=== PATIENT | male | born 1970 | race Caucasian/White ===

== ENCOUNTER 2016-11-01 10:35 | Emergency (ER) | payer OTHER ==
[2016-11-01 10:43] VITALS: RESP 16
[2016-11-01] MEDS ORDERED: NS 1,000 ML IV ONE (11:01)
--- NOTE | 2016-11-01 11:06 | EDPHY ---
H & P Stated Complaint: LLQ pain with diarrhea turning to maroon bloody stool since 2: 30 am HPI/ROS: CHIEF COMPLAINT: Left lower quadrant abdominal pain, bloody stools HISTORY OF PRESENT ILLNESS: Patient complains of bloody stools that started around 8:00 p.m. last night. This was diarrhea with some darker and brighter red blood in the toilet. It is bright red blood when he wipes. He has had 5 more episodes of this. The subsequent episodes have minimal bowel production, and more blood present. He associates this with some cramping, left lower quadrant abdominal pain. This is constant. It does not radiate. Some nausea but no vomiting. No fever chills. No flank pain. No bleeding disorders, diverticulitis, Crohn's, ulcerative colitis. Does have a history of diverticulitis in the family. Did not take any blood thinners. He does not have any bleeding disorders. No bleeding from any other site No instrumentation of the rectum. No recent weight loss. No changes in the caliber of the stool. No other associated complaints or modifying factors. PREVIOUS ABDOMINAL SURGERIES/DIAGNOSES: None NPO: Last night REVIEW OF SYSTEMS: Ten systems reviewed and are negative unless otherwise noted in the HPI EXAMINATION: General Appearance: Alert, no distress Head: normocephalic, atraumatic Eyes: Pupils equal and round, no conjunctival pallor or injection ENT, Mouth: Mucous membranes moist. Uvula midline. Neck: Normal inspection, supple, non-tender Respiratory: Lungs are clear to auscultation. No wheezing, rhonchi or crackles. Cardiovascular: Regular rate and rhythm. No murmur. Pulses intact distally. Gastrointestinal: Abdomen is soft. Mild tenderness in left lower quadrant. No guarding. No rebound. No tympany. No rigidity. Non-acute abdomen. Rectal exam: patient declined/deferred Neurological: A&O, nonfocal, normal gait Skin: Warm and dry, no rash Extremities: Nontender, no pedal edema Psychiatric: Mood and affect normal DIFFERENTIAL DIAGNOSES: Diverticulosis, diverticulitis, Crohn's, ulcerative colitis, enteritis MDM: 11:12 a.m. Left lower quadrant abdominal pain with diarrhea and some hematochezia. Vital signs are stable. Abdominal exam is not acute but he is tender left lower quadrant. I have ordered CT scan of the abdomen pelvis in addition 1:40 p.m. I have re-evaluated patient twice in the past 2 hours. He remains hemodynamically stable in no acute distress. Laboratory studies reveal a mild leukocytosis. Hemoglobin is normal. Coagulation studies normal. The GI pathogen panel reveals Enteroaggregate E. Coli and positive hemoccult. CT scan reveals focal thickening of the rectum with recommendation of direct visualization. I have discussed this with the patient. He has declined a rectal examination. We will proceed with discharge home follow up with GI specialist. I will contact GI physician prior to discharge home for outpatient recommendations. 1:55 p.m. I discussed the case with Dr. Alicia. He says that the patient can follow up with [facility]. No further recommendations room at this time. Patient is comfortable with this plan. He is discharged home stable condition with prescription for Keflex ED Precautions: Worsening pain. Fever. Bloody stools. Bloody emesis. Constipation or diarrhea. SUPERVISION: This patient was independently evaluated without direct examination by the attending physician. Case was discussed with attending physician. Case discussed with Dr. Soni Source: Patient, Family Exam Limitations: No limitations - Personal History Current Tetanus/Diphtheria Vaccine: Unsure Current Tetanus Diphtheria and Acellular Pertussis (TDAP): Unsure - Medical/Surgical History Hx Asthma: No Hx Chronic Respiratory Disease: No Hx Diabetes: No Hx Cardiac Disease: No Hx Renal Disease: No Hx Cirrhosis: No Hx Alcoholism: No Hx HIV/AIDS: No Hx Splenectomy or Spleen Trauma: No Other PMH: SVT - Social History Smoking Status: Never smoked Constitutional: Initial Vital Signs Temperature (C) 98.4 F 11/01/16 10:38 Heart Rate 67 11/01/16 10:38 Respiratory Rate 16 11/01/16 10:38 Blood Pressure 141/103 H 11/01/16 10:38 O2 Sat (%) 98 11/01/16 10:38 O2 Delivery Mode Room Air Allergies/Adverse Reactions: No Known Allergies Allergy (Unverified 11/01/16 10:36) Home Medications: Medication Instructions Recorded Aspirin 11/01/16 Cephalexin [Keflex (*)] 500 mg PO TID #30 cap 11/01/16 DILTIAZEM ER 11/01/16 Medical Decision Making - Diagnostics Imaging Results: Imaging Impressions Abdomen CT 11/01/16 11:11 Impression: Localized rectal wall thickening. Recommend correlation with direct inspection. Rectal carcinoma is in the differential diagnosis. Doubt proctitis since the mural thickening is eccentric. A message was left with the scribe of Lele Arriaga at 1:13 PM General information for patients regarding this examination can be found at [email or web address]. If you have questions or comments about this report, please contact me at (hospital) or [phone] (cell). - Data Points Laboratory Results: Laboratory Results 11/01/16 11:05 11/01/16 11:05 11/01/16 11/01/16 11/01/16 11:05 11:05 11:05 WBC 13.82 10^3/uL H 10^3/uL (3.80-9.50) RBC 4.66 10^6/uL 10^6/uL (4.40-6.38) Hgb 14.9 g/dL g/dL (13.7-17.5) Hct 42.5 % % (40.0-51.0) MCV 91.2 fL fL (81.5-99.8) MCH 32.0 pg pg (27.9-34.1) MCHC 35.1 g/dL g/dL (32.4-36.7) RDW 12.3 % % (11.5-15.2) Plt Count 320 10^3/uL 10^3/uL (150-400) MPV 10.7 fL fL (8.7-11.7) Neut % (Auto) 68.3 % % (39.3-74.2) Lymph % (Auto) 20.7 % % (15.0-45.0) [place] % (Auto) 9.6 % % (4.5-13.0) Eos % (Auto) 0.4 % L % (0.6-7.6) Baso % (Auto) 0.7 % % (0.3-1.7) Nucleat RBC Rel Count 0.0 % % (0.0-0.2) Absolute Neuts (auto) 9.45 10^3/uL H 10^3/uL (1.70-6.50) Absolute Lymphs (auto) 2.86 10^3/uL 10^3/uL (1.00-3.00) Absolute Monos (auto) 1.33 10^3/uL H 10^3/uL (0.30-0.80) Absolute Eos (auto) 0.05 10^3/uL 10^3/uL (0.03-0.40) Absolute Basos (auto) 0.09 10^3/uL 10^3/uL (0.02-0.10) Absolute Nucleated RBC 0.00 10^3/uL 10^3/uL (0-0.01) Immature Gran % 0.3 % % (0.0-1.1) Immature Gran # 0.04 10^3/uL 10^3/uL (0.00-0.10) PT 13.2 SEC SEC (12.0-15.0) INR 1.01 (0.83-1.16) APTT 25.1 SEC SEC (23.0-38.0) Sodium 142 mEq/L mEq/L (134-144) Potassium 3.8 mEq/L mEq/L (3.5-5.2) Chloride 106 mEq/L mEq/L (97-110) Carbon Dioxide 23 mEq/l mEq/l (22-31) Anion Gap 13 mEq/L mEq/L (8-16) BUN 18 mg/dL mg/dL (7-23) Creatinine 0.9 mg/dL mg/dL (0.7-1.3) Estimated GFR > 60 Glucose 104 mg/dL H mg/dL (70-100) Calcium 10.2 mg/dL mg/dL (8.5-10.4) Total Bilirubin 0.7 mg/dL mg/dL (0.1-1.4) Conjugated Bilirubin 0.3 mg/dL mg/dL (0.0-0.5) Unconjugated Bilirubin 0.4 mg/dL mg/dL (0.0-1.1) AST 25 IU/L IU/L (17-59) ALT 26 IU/L IU/L (21-72) Alkaline Phosphatase 70 IU/L IU/L (38-126) Total Protein 8.2 g/dL g/dL (6.3-8.2) Albumin 4.7 g/dL g/dL (3.5-5.0) Lipase 145.0 IU/L IU/L (23-300) Stool Occult Bld Scrn 11/01/16 11:01 WBC RBC Hgb Hct MCV MCH MCHC RDW Plt Count MPV Neut % (Auto) Lymph % (Auto) [place] % (Auto) Eos % (Auto) Baso % (Auto) Nucleat RBC Rel Count Absolute Neuts (auto) Absolute Lymphs (auto) Absolute Monos (auto) Absolute Eos (auto) Absolute Basos (auto) Absolute Nucleated RBC Immature Gran % Immature Gran # PT INR APTT Sodium Potassium Chloride Carbon Dioxide Anion Gap BUN Creatinine Estimated GFR Glucose Calcium Total Bilirubin Conjugated Bilirubin Unconjugated Bilirubin AST ALT Alkaline Phosphatase Total Protein Albumin Lipase Stool Occult Bld Scrn POSITIVE H (NEGATIVE) Microbiology Results: MICROBIOLOGY 11/01/16 11:01 Stool Gastrointestinal Tract Panel (PCR) - Final E.coli Enteroaggregative(Eaec) Medications Given: Discontinued Medications Sodium Chloride (Ns) 1,000 mls @ 0 mls/hr IV ONCE ONE PRN Reason: Wide Open Stop: 11/01/16 11:02 Last Admin: 11/01/16 11:08 Dose: 1,000 mls Departure - Departure Disposition: Home, Routine, Self-Care Clinical Impression: Proctitis, E coli enteritis Condition: Good Instructions: Proctitis (ED), Infectious Colitis (ED) Additional Instructions: Medications as discussed. Increase fluid intake. Return to ER for worsening bleeding, lightheadedness, dizziness or syncope. Follow up with GI for definitive care. Referrals: Kalie Holley MD [Medical Doctor] - As per Instructions Prescriptions: Cephalexin [Keflex (*)] 500 mg PO TID #30 cap
[2016-11-01 11:17] LABS: % IMMATURE GRANULYOCYTES 0.3 % (0.0-1.1); ABSOLUTE IMMATURE GRANULOCYTES 0.04 10^3/uL (0.00-0.10); ADD DIFF? NO; ADD MORPH? NO; ADD SCAN? NO; ATYPICAL LYMPHOCYTE FLAG 0 (0-99); FRAGMENT RBC FLAG 0 (0-99); HEMATOCRIT 42.5 % (40.0-51.0); HEMOGLOBIN 14.9 g/dL (13.7-17.5); LEFT SHIFT FLG 0 (0-99); LIPEMIA HEMOLYSIS FLAG 90 (0-99); MEAN CELL HEMOGLOBIN CONCENTR. 35.1 g/dL (32.4-36.7); MEAN CELL VOLUME 91.2 fL (81.5-99.8); MEAN PLATELET VOLUME 10.7 fL (8.7-11.7); PLATELET CLUMPS FLAG 0 (0-99); PLATELET COUNT 320 10^3/uL (150-400); RED BLOOD CELL COUNT 4.66 10^6/uL (4.40-6.38); RED CELL DISTRIBUTION WIDTH 12.3 % (11.5-15.2)
[2016-11-01 11:37] LABS: ALANINE AMINOTRANSFERASE 26 IU/L (21-72); ALBUMIN 4.7 g/dL (3.5-5.0); ALKALINE PHOSPHATASE 70 IU/L (38-126); ANION GAP 13 mEq/L (8-16); ASPARTATE AMINOTRANSFERASE 25 IU/L (17-59); BILIRUBIN,TOTAL 0.7 mg/dL (0.1-1.4); BILIRUBIN-CONJUGATED 0.3 mg/dL (0.0-0.5); BILIRUBIN-UNCONJUGATED 0.4 mg/dL (0.0-1.1); CALCIUM 10.2 mg/dL (8.5-10.4); CARBON DIOXIDE 23 mEq/l (22-31); CHLORIDE 106 mEq/L (97-110); CREATININE 0.9 mg/dL (0.7-1.3); GLOMERULAR FILTRATION RATE > 60; GLUCOSE 104 mg/dL (70-100); POTASSIUM 3.8 mEq/L (3.5-5.2); SODIUM 142 mEq/L (134-144); TOTAL PROTEIN 8.2 g/dL (6.3-8.2)
[2016-11-01 11:44] LABS: INR 1.01 (0.83-1.16); PROTIME(PATIENT) 13.2 SEC (12.0-15.0)
[2016-11-01 11:45] LABS: APTT 25.1 SEC (23.0-38.0)
[2016-11-01] MEDS ORDERED: IOPAMIDOL (ISOVUE-300) 100 ML BTL IV ONE (12:09)
[2016-11-01 14:09] VITALS: BP 152/99; PULSE 51; TEMP 98.2; O2SAT 95
== END 2016-11-01 14:09 | disposition home or self-care (01) ==
DX: A04.4 Other intestinal Escherichia coli infections (principal); K62.89 Other specified diseases of anus and rectum; Z79.82 Long term (current) use of aspirin
CPT/HCPCS: Q9967